=== PATIENT | male | born 1985 | race Two or more races ===

== ENCOUNTER 2019-09-10 14:12 | Emergency (ER) | payer SELFPAY ==
[2019-09-10 14:30] VITALS: BP 110/74
--- NOTE | 2019-09-10 14:45 | UC ---
Abdominal Pain Male HPI - HPI Summary HPI Summary: Pt presents with a friend/relative that is acting as director of enrollment. Pt states that he had sudden onset of nausea and vomiting last evening after eating a piece of cake. Pt states he went to bed, slept through the night, woke this morning with abdominal pain and nausea. and vomited X 2. Pt has had a regular nel mirtha and a cup of coffee just prior to arrival to clinic. Pt denies eating anything else today. - History of Current Complaint Chief Complaint: UCGeneralIllness Stated Complaint: VOMITING, BACK PAIN Time Seen by Provider: 09/10/19 14:34 Hx Obtained From: Patient Onset/Duration: Sudden Onset, Still Present Timing: Constant Severity Initially: Moderate Severity Currently: Moderate Pain Intensity: 8 Location: Diffuse - abdomen Radiates: No Character: Colicy, Dull Aggravating Factor(s): Nothing Alleviating Factor(s): Nothing Associated Signs And Symptoms: Positive: Decreased Appetite, Nausea, Vomiting, Diarrhea - Risk Factors Testicular Torsion: Negative Cardiac Risk Factors: Negative - Allergies/Home Medications Allergies/Adverse Reactions: Allergies Allergy/AdvReac Type Severity Reaction Status Date / Time No Known Allergies Allergy Verified 09/10/19 14:30 Home Medications: Home Medications Acetaminophen [Tylenol] 325 mg PO ONCE PRN 09/10/19 [History Confirmed 09/10/19] Loperamide CAP* [Imodium CAP*] 2 mg PO Q4H PRN #18 cap 09/10/19 [Rx] Ondansetron HCl [Zofran] 4 mg PO Q8H PRN #15 tablet 09/10/19 [Rx] PMH/Surg Hx/FS Hx/Imm Hx Previously Healthy: Yes - pt denies any increase in thirst, urniation and weight loss - Surgical History Surgical History: None - Family History Known Family History: Positive: Cardiac Disease - Social History Occupation: Employed Full-time Lives: With Family Alcohol Use: None Substance Use Type: None Smoking Status (MU): Never Smoked Tobacco Have You Smoked in the Last Year: No Review of Systems All Other Systems Reviewed And Are Negative: Yes Constitutional: Positive: Negative Skin: Positive: Negative Eyes: Positive: Negative ENT: Positive: Negative Respiratory: Positive: Negative Cardiovascular: Positive: Negative Gastrointestinal: Positive: Abdominal Pain, Vomiting, Diarrhea, Nausea Genitourinary: Positive: Negative Motor: Positive: Negative Neurovascular: Positive: Negative Musculoskeletal: Positive: Negative Neurological/Mental Status: Positive: Negative Psychological: Positive: Negative Is Patient Immunocompromised?: No Physical Exam Triage Information Reviewed: Yes Appearance: Well-Appearing Vital Signs: Initial Vital Signs Temp 98.5 F 09/10/19 14:24 Pulse 91 09/10/19 14:24 Resp 17 09/10/19 14:24 BP 110/74 09/10/19 14:24 Pulse Ox 97 09/10/19 14:24 Vital Signs Reviewed: Yes Eye Exam: Normal ENT: Positive: Hearing grossly normal Dental Exam: Normal Neck exam: Normal Respiratory: Positive: Normal breath sounds, No respiratory distress Cardiovascular Exam: Normal Abdomen Description: Positive: Other: - c/o generalized tenderness with PE Bowel Sounds: Positive: Present Musculoskeletal Exam: Normal Neurological Exam: Normal Psychological Exam: Normal Skin Exam: Normal Abd Pain Male Course/Dx - Course Course Of Treatment: Pt fingerstick- 102. Pt reports drinking gingerale just prior to arrival to - Differential Dx/Clinical Impression Differential Diagnosis/HQI/PQRI: Appendicitis, Other - food poisoning Provider Diagnosis: Nausea & vomiting, Abdominal pain, Diarrhea Discharge ED - Sign-Out/Discharge Documenting (check all that apply): Patient Departure All imaging exams completed and their final reports reviewed: No Studies - Discharge Plan Condition: Stable Disposition: HOME Prescriptions: Loperamide CAP* [Imodium CAP*] 2 mg PO Q4H PRN #18 cap PRN Reason: Diarrhea Ondansetron HCl [Zofran] 4 mg PO Q8H PRN #15 tablet PRN Reason: Nausea Patient Education Materials: Acute Nausea and Vomiting (ED), Acute Diarrhea (ED ) Referrals: [facility] [Outside] No Primary Care Phys,NOPCP [Primary Care Provider] - Additional Instructions: Please establish care with a PCP as soon as possible. - Billing Disposition and Condition Condition: STABLE Disposition: Home - Attestation Statements Provider Attestation: This patient was not seen by me. I was available for consult. Chart reviewed. ALEENA
== END 2019-09-10 15:18 | disposition home or self-care (01) ==
LOC: UCCORT 14:12
DX: R11.2 Nausea with vomiting, unspecified (principal); R10.84 Generalized abdominal pain; R19.7 Diarrhea, unspecified
CPT/HCPCS: 99202; G0463